=== PATIENT | male | born 1960 | race Two or more races ===

== ENCOUNTER 2023-07-28 10:02 | Emergency (ER) | payer OTHER, MEDICAID ==
[~2023-07-28] VITALS: Ht 170.2 cm; Wt 95.8 kg
[2023-07-28 10:49] VITALS: BP 133/84; PULSE 85; RESP 16; TEMP 97.8; O2SAT 97
[2023-07-28] MEDS ORDERED: DOCU-94 PO (10:52)
[2023-07-28] MEDS ORDERED: IBUP-1456 PO (10:52)
[2023-07-28] MEDS ORDERED: HYDR25SU21 PR (10:52)
== END 2023-07-28 10:58 | disposition home or self-care (01) ==
LOC: ER 10:02
DX: K64.4 Residual hemorrhoidal skin tags (principal); Z79.1 Long term (current) use of non-steroidal anti-inflammatories (NSAID); Z79.899 Other long term (current) drug therapy